=== PATIENT | male | born 1990 | race Caucasian/White ===

== ENCOUNTER 2017-01-07 08:33 | Observation (INO) | payer MEDICAID, SELFPAY ==
[2017-01-07] VITALS (18 sets, daily range): BP systolic 94–113; BP diastolic 50–68; PULSE 94–151; RESP 12–41; TEMP 37.1–38.7; O2SAT 93–100; BMI 24.2; BMI 23.8; BMI 23.9
--- NOTE | 2017-01-07 08:46 | EKG12_ITS ---
Test Reason : DYSRHYTHMIA Blood Pressure : / mmHG Vent. Rate : 144 BPM Atrial Rate : 144 BPM P-R Int : 124 ms QRS Dur : 082 ms QT Int : 280 ms P-R-T Axes : 062 084 065 degrees QTc Int : 433 ms Sinus tachycardia Otherwise normal ECG Confirmed by ALIREZA CORNELIUS, NORRIS ([id number]), editorial writer MU RINALDI ([id number]) on 01/13/2017 4:04:57 PM Referred By: FRENCH Confirmed By:NORRIS LAY MD
--- NOTE | 2017-01-07 08:46 | RAD_ITS ---
STUDY: X-RAY CHEST REASON FOR EXAM: Male, 26 years old. Dyspnea and shortness of breath. TECHNIQUE: Single AP portable view of the chest. COMPARISON: None. FINDINGS: EKG electrodes are seen. The lungs are clear and expanded. There is no demonstrated pleural abnormality. Normal size heart. Normal mediastinum and candy. Normal visualized pulmonary arteries. Normal visualized aortic arch and descending thoracic aorta. Normal visualized thoracic spine. Normal visualized ribs, clavicles, and shoulders. There is no demonstrated abnormality of the visualized soft tissue structures of the upper abdomen. RAD/Chest 1 View (Portable) IMPRESSION: Normal x-ray examination of the chest. Electronically Signed: Anibal Chandler MD at 9:29 EDT Tel [phone], Service support ,
--- NOTE | 2017-01-07 08:47 | ED.RN ---
NO OLD EKG
[2017-01-07] MEDS: 0.9% Normal Saline 1,000 ML IV.SOLN. 2500 ML IV (09:00)
[2017-01-07] MEDS: Acetaminophen 325 MG Tablet 650 MG PO (09:07)
[2017-01-07 09:16] LABS: Absolute Lymphocyte Count 0.98 X10^3/ul (0.83-4.51); Absolute Neutrophil Count 2.2 X10^3/uL (2.0-7.7); Basophil# 0.01 X10^3/uL; Basophil% 0.3 % (0-1); Eosinophil# 0.05 X10^3/uL; Eosinophils% 1.5 % (0-5); Hematocrit 42.1 % (40-54); Hemoglobin 14.1 g/dl (13.0-16.5); Lymphocyte # 0.98 X10^3/ul (4.0); Lymphocyte % 29.7 % (19-41); Mean Corp Hgb Conc 33.5 g/gl (32-36); Mean Corpuscular Hgb 29.3 pg (27.0-32.0); Mean Corpuscular Volume 87.5 fL (80-94); Mean Platelet Vol. 8.6 fl (6.2-12.0); Monocyte# 0.02 X10^3/uL; Monocyte% 0.6 % (0-10); Neutrophil # 2.24 X10^3/uL (2.7-7.7); Neutrophil % 67.9 % (47-70); Platelet Count 164 K/mm3 (150-450); RBC Distribution Width CV 15.2 % (11.6-14.6); RBC Distribution Width SD 49.2 fl (35.1-43.9); Red Blood Count 4.81 M/mm3 (4.6-6.2); White Blood Count 3.3 K/mm3 (4.4-11.0)
[2017-01-07 09:17] LABS: POSITIVE COUNT NO; POSITIVE DIFFERENTIAL NO; POSITIVE MORPHOLOGY NO
[2017-01-07 09:21] LABS: International Normalized Ratio 1.2; Prothrombin Time (Protime)PT. 14.4 SECONDS (11.7-14.9)
[2017-01-07 09:22] LABS: Partial Thromboplast Time 31.6 Seconds (24.1-36.2)
--- NOTE | 2017-01-07 09:25 | ED.DCSUM_ITS ---
- ER Visit Summary Date of Service: 01/07/17 Chief Complaint: Shortness of breath and palpitations History of Present Illness: The patient is a 26 M presenting for evaluation secondary to shortness of breath and palpitations. Patient states that today he went outside for a cigarette, and then had a sudden onset of intense Reiger's , palpitations, and shortness of breath. Patient states that he has a history of opiate abuse, his last injection use was 4 days ago and his last oral use was 2 days ago. Patient states that he is trying to get into a Suboxone clinic currently. He denies any cough, nausea vomiting diarrhea abdominal pain skin rashes or urinary symptoms. Review of systems otherwise negative Physical Examination: Vital signs are notable for a temperature of 101.2 and a heart rate of 151 and a respiratory rate of 41. Patient was 93% on room air. Well-nourished well-developed somewhat anxious male not in physiologic distress. Head normocephalic atraumatic. No conjunctival pallor no scleral icterus moist mucous membranes significantly poor dentition. Neck supple. Heart was tachycardic and regular without identifiable murmur. Lungs sounds showed evidence of wheezes in the upper and lower lung royal with tachypnea but no retractions. Abdomen was soft and nontender. Peripheral pulses were 2+ and symmetric. Skin exam shows no evidence of splinter hemorrhages, Janeway lesions, or Osler's nodes. Skin was normal color with no rash but was hot to the touch. Patient was alert and oriented without any lateralizing neurological deficits. Test Results: EKG shows sinus rate of [address] segments and normal T waves. Chest x-ray by my personal interpretation shows no acute pathology. CBC shows leukopenia with a white count of 3.3 without significant evidence of increased segs, chemistry panel unremarkable, urinalysis and urine tox screen unremarkable, elevated lactic acid at 3.5. Emergency Department Course and Treatment: Patient presented for evaluation secondary to shortness of breath palpitations fever and signs and symptoms of sepsis. He does have a history of IV drug use and as a significant risk for bacteremia. Sepsis protocol was initiated, patient was given a 30 cc prefer kilogram fluid bolus and was immediately started on vancomycin and aztreonam after blood cultures were obtained. He does not really have any stigmata at this point of endocarditis but I do still have some suspicion of this. His workup was negative for a source of infection, he remained tachycardic but otherwise hemodynamically stable. I believe the patient requires admission at this time I discussed with the hospitalist. Critical care time 35 minutes Disposition: Admission Impression: 1. Severe sepsis 2. Enteritis 3. Opiate dependence ED Disposition - Plan for ED Patient: Chief Complaint: Shortness of Breath Referrals: Care Physician,No Primary [Primary Care Provider] -
[2017-01-07 09:28] LABS: ALB/GLOB Ratio 0.9 RATIO (0.9-2.4); AST(SGOT) 56 U/L (15-37); Alanine Aminotransfer ALT/SGPT 67 U/L (12-78); Albumin, Serum 3.8 g/dL (3.4-5.0); Alkaline Phosphatase 79 U/L (45-117); Anion Gap 10 (5-15); BUN 11 mg/dL (7-18); BUN/Creat Ratio 12.4 RATIO (10-20); Chloride 107 mmol/L (98-107); Creatinine, Serum 0.89 mg/dL (0.70-1.30); EST Glomerular Filtration Rate 110 mL/min (>60); Est Glom Filt Rate - Afr Amer 133 mL/min (>60); Estimated Creatinine Clearance 129.87 ml/min; Globulin 4.1 g/dL (2.3-3.5); Glucose 100 mg/dL (70-110); Potassium 3.5 mmol/L (3.5-5.1); Protein, Total 7.9 g/dL (6.4-8.2); Sodium Level 138 mmol/L (136-145)
--- NOTE | 2017-01-07 09:40 | CT_ITS ---
STUDY: CT BRAIN WITHOUT CONTRAST REASON FOR EXAM: Male, 26 years old. Altered mental status. Tachycardia. Opiate addiction. RADIATION DOSAGE (If Supplied By Facility): CTDIvol = ( 44.99 ) mGy, DLP = ( 745.49 ) mGycm TECHNIQUE: Transaxial CT imaging of the brain was performed without administration of intravenous contrast material. Individualized dose optimization techniques were used for this CT. COMPARISON: None. FINDINGS: Normal soft tissue structures. Normal calvarium. Normal size ventricles and extra-axial spaces for the patient's age. Normal white matter tracts of the cerebral hemispheres. Normal basal ganglia and thalami. Normal brainstem. Normal cerebellum. There is no intracranial hemorrhage. There are no findings of an acute ischemic infarction. Normal visualized paranasal sinuses. CT/Brain/Head without Contrast IMPRESSION: Normal unenhanced CT scan of the brain. Electronically Signed: Anibal Chandler MD at 10:56 EDT Tel [phone], Service support ,
[2017-01-07 09:46] LABS: Lactic Acid 3.4 mmol/L (0.4-2.0)
--- NOTE | 2017-01-07 09:47 | ED.RN ---
LACTIC LEVEL 3.4, MD AND PRIMARY NURSE NOTIFIED.
[2017-01-07 10:09] LABS: Bacteria 0 SEEN /hpf (None Seen); Mucous, Urine 0 SEEN /hpf (<or=2+); Squamous Epithelial Cells - UA 0 SEEN /hpf (0-5)
[2017-01-07 10:23] LABS: Color, Urine Yellow (Yellow); Glucose, Dipstick Normal (Normal); Ketone-Dipstick Negative (Negative); Leukocyte Esterase-Dipstick 25 /ul (Negative); Nitrite-Dipstick Negative (Negative); Occult Blood-Urine 250 /ul (Negative); Protein-Dipstick 30 mg/dl (Negative); Specific Gravity, Urine 1.025 (1.002-1.030); Urine Clarity Clear (Clear); Urine Urobilinogen 1 mg/dl (Normal)
[2017-01-07 10:26] LABS: Urine Bilirubin Dipstick 1 mg/dL (Negative)
[2017-01-07 10:29] LABS: Amphetamine Urine VISTA NEGATIVE (<1000 ng/mL); Barbiturate Urine VISTA NEGATIVE (< 200 ng/mL); Benzodiazepine Urine VISTA NEGATIVE (< 200 ng/mL); Cocaine Urine VISTA NEGATIVE (< 300 ng/mL); Ecstacy Urine VISTA NEGATIVE (< 500 ng/mL); Methadone Urine VISTA NEGATIVE (< 300 ng/mL); PCP Urine VISTA NEGATIVE (< 25 ng/mL); THC Urine VISTA NEGATIVE (< 50 ng/mL); Vista UDS pH Range 5
[2017-01-07 10:34] LABS: Red Blood Cells-Urine 10-25 SEEN /hpf (0-5); White Blood Cells 0-5 SEEN /hpf (0-5)
--- NOTE | 2017-01-07 11:17 | ED.RN ---
REPORT SENT, CHARGE NURSE CALLED. CHARGE NURSE WILL CALL BACK SHE IS WITH AN ICU PT AT THE TIME.
--- NOTE | 2017-01-07 11:30 | ECHOD_ITS ---
Reason For Study: IV drug use, fever Procedure This was a 2D Doppler, Color Flow transthoracic echocardiogram. Exam performed portable in ICU/CCU. Left Ventricle Normal LV size. Left ventricular systolic function is normal. The estimated ejection fraction is 60 %. No regional wall motion abnormalities noted. Right Ventricle Normal RV size. Normal systolic function. Atria Normal left atrium. Normal right atrium. Mitral Valve Normal mitral valve. Tricuspid Valve Normal tricuspid valve. Aortic Valve Normal aortic valve. Trisinus/trileaflet aortic valve. Pulmonic Valve Normal pulmonic valve. Great Vessels Normal aortic root. The pulmonary artery is normal size. Normal inferior vena cava. Pericardium/Pleural No pericardial effusion. MMode/2D Measurements & Calculations LVIDd: 4.8 cm IVSd: 0.98 cm Ao root diam: 2.7 cm LVIDs: 3.0 cm LVPWd: 0.98 cm LA dimension: 3.6 cm RVDd: 3.8 cm FS: 37.7 % LAV(MOD-bp): 61.9 ml LA A4 area: 18.7 cm2 RA A4 area: 14.2 cm2 LAV(MOD-bp) Indexed: 31.9 ml/m2 LAV(MOD-sp2): 58.8 ml LAV(MOD-sp4): 54.4 ml Doppler Measurements & Calculations MV E max dwayne: 93.8 cm/sec Lat Peak E' Dwayne: 20.8 cm/sec Med Peak E' Dwayne: 16.1 cm/sec MV A max dwayne: 75.5 cm/sec E/E' lat: 4.5 E/E' med: 5.8 MV E/A: 1.2 Ao V2 max: 125.5 cm/sec LV V1 max: 116.3 cm/sec PA V2 max: 94.4 cm/sec Ao max P.3 mmHg LV V1 max P.4 mmHg Interpretation Summary Normal LV size. Left ventricular systolic function is normal. The estimated ejection fraction is 60 %. Trisinus/trileaflet aortic valve. Ordering Physician: Namrata Reese Referring Physician: GEORGE PCP Performed By: Alexus Gonzalez, RIGOBERTO, RVT
--- NOTE | 2017-01-07 11:55 | PCM.CON.CC ---
Reason for Consult Date of Consultation: 01/07/17 Reason for Consultation: Possible sepsis History of Present Illness: The patient is a 26-year-old male, with a history as outlined below, who presented to the emergency department on January 07 with complaints of chills, rigors and shortness of breath. The patient is currently residing at the [facility]. He reports that shortly after awakening this morning he went outside to smoke a cigarette, after which time he developed chills and significant rigors. The patient reports that he then went on to develop shortness of breath. The patient has a history of IV drug use. He reports that he last injected fentanyl 4 days ago. Prior to living at the [facility], [facility] where he states that he was routinely drinking [place] water and using stagnant water to inject his drugs. He also reports that several days ago he had a tooth abscess which prevented him from sleeping. Therefore, he pierced said abscess with some form of a needle to drain what he describes as purulent material. He reports that [facility] he has had a great deal of abdominal discomfort, bloating, flatulence and diarrhea. The patient is a current smoker of cigarettes of approximately 1 pack per day. On presentation to the emergency department, the patient was noted to be febrile, tachycardic but hemodynamically stable. He was initially maintaining appropriate oxygen saturations on room air. Initial laboratory evaluation revealed a decreased white blood cell count to 3000. Coagulation profile is within normal limits. Chemistry profile was largely unremarkable. Serum lactate was elevated to 3.4. AST was elevated to 56. Urinalysis was largely unremarkable. Toxicology screen was negative. Plain film chest x-ray revealed no acute cardiopulmonary process. CT head was negative. Given concern for underlying sepsis, the patient was given IV fluid hydration and started on antibiotics. He was subsequently transferred to the medical intensive care unit for ongoing management. Past Medical History Past Medical History (Chronic Problems): Chronic Problems Nicotine addiction (Chronic) Opiate addiction (Chronic) Poor dentition (Chronic) Allergies amoxicillin trihydrate [From Augmentin] Allergy (Verified 01/07/17 08:36) Swelling clindamycin Allergy (Verified 01/07/17 08:36) Swelling potassium clavulanate [From Augmentin] Allergy (Verified 01/07/17 08:36) Swelling ibuprofen [From Motrin] Adverse Reaction (Verified 01/07/17 08:36) Other Home Medications: Ambulatory Orders Medication Instructions Recorded Dicyclomine HCl [Bentyl] 20 mg PO ACHS #10 capsule 01/07/17 Smoking Status: Current every day smoker - *Family History Maternal History Items: No pertinent history Paternal History Items: No pertinent history Review of Systems Constitutional: Reports: Chills, Malaise. Denies: Fever Eyes: Denies: Blurred vision, Double vision HEENT: Denies: Head Aches, Sinus Congestion, Sinus Drainage Cardiovascular: Denies: Chest Pain, Palpitations Respiratory: Reports: Shortness of Breath Gastrointestinal: Reports: Abdominal Pain, Diarrhea Genitourinary: Denies: Dysuria Musculoskeletal: Reports: Leg Pain Skin: Denies: Rash, Wounds Neurological: Reports: Numbness Psychiatric: Denies: Anxiety, Depression, Homicidal Ideations, Suicidal Ideations Hematologic/ Lymphatic: Denies: Easy Bruising, Easy Bleeding Objective: The patient's most recent lab work, culture data and imaging studies have all been personally reviewed. Blood and urine cultures are currently pending. - Physical Exam General: Alert, Oriented x3, Cooperative, No apparent distress HEENT: Atraumatic, PERRLA, Normocephalic Oral: Moist Mucosa, - - Poor dentition Neck: Supple, No JVD, Trachea Midline Lungs: Normal air movement, No rhonchi, No wheeze, No rales Cardiovascular: Normal S1, Normal S2, No murmurs, Tachycardic Abdomen: Soft, Non Tender, Hyperactive Bowel Sounds Extremities: No clubbing, No cyanosis, No edema Skin: - - Multiple tattoos. Circumscribed induration in left antecubital fossa Musculoskeletal: No Tenderness to Palpation of Joints or Extremities Lymphatic: No Cervical, Supraclavicular, or Inguinal Adenopathy Neurological: Neuro grossly intact Psych/Mental Status: Normal Affect, Appropriate Vital Signs Temp Pulse Resp BP Pulse Ox 37.2 C 111 23 105/54 93 01/07/17 11:00 01/07/17 10:49 01/07/17 10:49 01/07/17 10:49 01/07/17 10:49 Laboratory Tests Past 24 Hrs 01/07/17 11:45 MRSA (PCR) Pending Labs (Last 48 Hours) 01/07/17 01/07/17 01/07/17 08:50 08:50 08:50 WBC 3.3 L RBC 4.81 Hgb 14.1 Hct 42.1 MCV 87.5 MCH 29.3 MCHC 33.5 RDW 15.2 H RDW Differential 49.2 H Plt Count 164 MPV 8.6 Immature Gran % (Auto) 0.000 Neut % (Auto) 67.9 Lymph % (Auto) 29.7 Drew % (Auto) 0.6 Eos % (Auto) 1.5 Baso % (Auto) 0.3 Absolute Neuts (auto) 2.2 Absolute Lymphs (auto) 0.98 Total Counted Not Reportable PT 14.4 INR 1.2 APTT 31.6 Sodium 138 Potassium 3.5 Chloride 107 Carbon Dioxide 21.0 Anion Gap 10 BUN 11 Creatinine 0.89 Estim Creat Clear Calc 129.87 Est GFR (MDRD) Af Amer 133 Est GFR (MDRD) Non-Af 110 BUN/Creatinine Ratio 12.4 Glucose 100 Lactic Acid Calcium 9.0 Total Bilirubin 1.00 AST 56 H ALT 67 Alkaline Phosphatase 79 Total Protein 7.9 Albumin 3.8 Globulin 4.1 H Albumin/Globulin Ratio 0.9 Urine Color Urine Clarity Urine pH Ur Specific Marshall Urine Protein Urine Glucose (UA) Urine Ketones Urine Occult Blood Urine Nitrite Urine Bilirubin Urine Urobilinogen Ur Leukocyte Esterase Urine RBC Urine WBC Ur Squamous Epith Cells Urine Bacteria Urine Mucus Urine Opiates Screen Urine Methadone Screen Ur Barbiturates Screen Ur Phencyclidine Scrn Ur Amphetamines Screen U Methamphetamin-MDMA U Benzodiazepines Scrn Urine Cocaine Screen U Cannabinoids Screen Ur Drug Screen Comment Ethyl Alcohol MRSA (PCR) 01/07/17 01/07/17 01/07/17 08:50 08:50 10:05 WBC RBC Hgb Hct MCV MCH MCHC RDW RDW Differential Plt Count MPV Immature Gran % (Auto) Neut % (Auto) Lymph % (Auto) Drew % (Auto) Eos % (Auto) Baso % (Auto) Absolute Neuts (auto) Absolute Lymphs (auto) Total Counted PT INR APTT Sodium Potassium Chloride Carbon Dioxide Anion Gap BUN Creatinine Estim Creat Clear Calc Est GFR (MDRD) Af Amer Est GFR (MDRD) Non-Af BUN/Creatinine Ratio Glucose Lactic Acid 3.4 H Calcium Total Bilirubin AST ALT Alkaline Phosphatase Total Protein Albumin Globulin Albumin/Globulin Ratio Urine Color Urine Clarity Urine pH Ur Specific Marshall Urine Protein Urine Glucose (UA) Urine Ketones Urine Occult Blood Urine Nitrite Urine Bilirubin Urine Urobilinogen Ur Leukocyte Esterase Urine RBC Urine WBC Ur Squamous Epith Cells Urine Bacteria Urine Mucus Urine Opiates Screen NEGATIVE Urine Methadone Screen NEGATIVE Ur Barbiturates Screen NEGATIVE Ur Phencyclidine Scrn NEGATIVE Ur Amphetamines Screen NEGATIVE U Methamphetamin-MDMA NEGATIVE U Benzodiazepines Scrn NEGATIVE Urine Cocaine Screen NEGATIVE U Cannabinoids Screen NEGATIVE Ur Drug Screen Comment Ethyl Alcohol 8.0 MRSA (PCR) 01/07/17 01/07/17 10:05 11:45 WBC RBC Hgb Hct MCV MCH MCHC RDW RDW Differential Plt Count MPV Immature Gran % (Auto) Neut % (Auto) Lymph % (Auto) Drew % (Auto) Eos % (Auto) Baso % (Auto) Absolute Neuts (auto) Absolute Lymphs (auto) Total Counted PT INR APTT Sodium Potassium Chloride Carbon Dioxide Anion Gap BUN Creatinine Estim Creat Clear Calc Est GFR (MDRD) Af Amer Est GFR (MDRD) Non-Af BUN/Creatinine Ratio Glucose Lactic Acid Calcium Total Bilirubin AST ALT Alkaline Phosphatase Total Protein Albumin Globulin Albumin/Globulin Ratio Urine Color Yellow Urine Clarity Clear Urine pH 5.0 Ur Specific Marshall 1.025 Urine Protein 30 H Urine Glucose (UA) Normal Urine Ketones Negative Urine Occult Blood 250 H Urine Nitrite Negative Urine Bilirubin 1 H Urine Urobilinogen 1 H Ur Leukocyte Esterase 25 H Urine RBC 10-25 SEEN Urine WBC 0-5 SEEN Ur Squamous Epith Cells 0 SEEN Urine Bacteria 0 SEEN Urine Mucus 0 SEEN Urine Opiates Screen Urine Methadone Screen Ur Barbiturates Screen Ur Phencyclidine Scrn Ur Amphetamines Screen U Methamphetamin-MDMA U Benzodiazepines Scrn Urine Cocaine Screen U Cannabinoids Screen Ur Drug Screen Comment Ethyl Alcohol MRSA (PCR) Pending Microbiology 01/07/17 10:05 Stool C. difficile DNA Amplification - Final Clinical Impression(s) from Imaging Studies Chest X-Ray 01/07/17 08:46 IMPRESSION: Normal x-ray examination of the chest. Electronically Signed: Anibal Chandler MD at 9:29 EDT Tel [phone], Service support , Brain CT 01/07/17 09:40 IMPRESSION: Normal unenhanced CT scan of the brain. Electronically Signed: Anibal Chandler MD at 10:56 EDT Tel [phone], Service support , Assessment/Plan RECOMMENDATIONS: 1. Continue broad antimicrobial coverage for now. The patient reports multiple drug allergies and was therefore changed to cefepime. Continue vancomycin with consideration for addition of Flagyl, if clinically indicated. 2. Okay to advance diet from my perspective. 3. Discontinue supplemental IV fluids. 4. Opiate withdrawal protocol initiated. 5. Echocardiogram is pending. 6. Recheck serum lactate level. 7. Check stool Giardia EIA IMPRESSIONS: 1. Sepsis Sources could include possible dental abscess, bacteremia from IV drug injection and/or parasitic infection from recent teller water ingestion. The patient has been adequately volume resuscitated at this time. He is currently hemodynamically stable. Continue antibiotics as noted above, pending culture results. Stool for Giardia EIA along with O&P has been ordered. Blood and urine cultures are pending. Echocardiogram to be completed. Repeat serum lactic acid level. Consider checking HIV status. 2. Personal history of IV drug abuse The patient reports that he last utilized IV fentanyl approximately 4 days ago. He will be maintained on an opiate withdrawal protocol. 3. Continuous tobacco dependence Tobacco cessation strongly advised. Nicotine replacement therapy can be offered to the patient while admitted to the hospital. This note was generated with [employer] software. It may contain incorrect words, spelling, and punctuation that were not noted in checking the note before signing.
--- NOTE | 2017-01-07 12:00 | CON.PCM_ITS ---
Reason for Consult Date of Consultation: 01/07/17 Reason for Consultation: Possible sepsis History of Present Illness: The patient is a 26-year-old male, with a history as outlined below, who presented to the emergency department on January 07 with complaints of chills , rigors and shortness of breath. The patient is currently residing at the [facility]. He reports that shortly after awakening this morning he went outside to smoke a cigarette, after which time he developed chills and significant rigors. The patient reports that he then went on to develop shortness of breath. The patient has a history of IV drug use. He reports that he last injected fentanyl 4 days ago. Prior to living at the [facility], the patient was residing in the [facility], where he states that he was routinely drinking [place] water and using stagnant water to inject his drugs. He also reports that several days ago he had a tooth abscess which prevented him from sleeping. Therefore, he pierced said abscess with some form of a needle to drain what he describes as purulent material. He reports that since living in the [facility] he has had a great deal of abdominal discomfort, bloating, flatulence and diarrhea. The patient is a current smoker of cigarettes of approximately 1 pack per day. On presentation to the emergency department, the patient was noted to be febrile , tachycardic but hemodynamically stable. He was initially maintaining appropriate oxygen saturations on room air. Initial laboratory evaluation revealed a decreased white blood cell count to 3000. Coagulation profile is within normal limits. Chemistry profile was largely unremarkable. Serum lactate was elevated to 3.4. AST was elevated to 56. Urinalysis was largely unremarkable. Toxicology screen was negative. Plain film chest x-ray revealed no acute cardiopulmonary process. CT head was negative. Given concern for underlying sepsis, the patient was given IV fluid hydration and started on antibiotics. He was subsequently transferred to the medical intensive care unit for ongoing management. Past Medical History Past Medical History (Chronic Problems): Chronic Problems Nicotine addiction (Chronic) Opiate addiction (Chronic) Poor dentition (Chronic) Allergies amoxicillin trihydrate [From Augmentin] Allergy (Verified 01/07/17 08:36) Swelling clindamycin Allergy (Verified 01/07/17 08:36) Swelling potassium clavulanate [From Augmentin] Allergy (Verified 01/07/17 08:36) Swelling ibuprofen [From Motrin] Adverse Reaction (Verified 01/07/17 08:36) Other Home Medications: Ambulatory Orders Medication Instructions Recorded Dicyclomine HCl [Bentyl] 20 mg PO ACHS #10 capsule 01/07/17 Smoking Status: Current every day smoker - *Family History Maternal History Items: No pertinent history Paternal History Items: No pertinent history Review of Systems Constitutional: Reports: Chills, Malaise. Denies: Fever Eyes: Denies: Blurred vision, Double vision HEENT: Denies: Head Aches, Sinus Congestion, Sinus Drainage Cardiovascular: Denies: Chest Pain, Palpitations Respiratory: Reports: Shortness of Breath Gastrointestinal: Reports: Abdominal Pain, Diarrhea Genitourinary: Denies: Dysuria Musculoskeletal: Reports: Leg Pain Skin: Denies: Rash, Wounds Neurological: Reports: Numbness Psychiatric: Denies: Anxiety, Depression, Homicidal Ideations, Suicidal Ideations Hematologic/ Lymphatic: Denies: Easy Bruising, Easy Bleeding Objective: The patient's most recent lab work, culture data and imaging studies have all been personally reviewed. Blood and urine cultures are currently pending. - Physical Exam General: Alert, Oriented x3, Cooperative, No apparent distress HEENT: Atraumatic, PERRLA, Normocephalic Oral: Moist Mucosa, - - Poor dentition Neck: Supple, No JVD, Trachea Midline Lungs: Normal air movement, No rhonchi, No wheeze, No rales Cardiovascular: Normal S1, Normal S2, No murmurs, Tachycardic Abdomen: Soft, Non Tender, Hyperactive Bowel Sounds Extremities: No clubbing, No cyanosis, No edema Skin: - - Multiple tattoos. Circumscribed induration in left antecubital fossa Musculoskeletal: No Tenderness to Palpation of Joints or Extremities Lymphatic: No Cervical, Supraclavicular, or Inguinal Adenopathy Neurological: Neuro grossly intact Psych/Mental Status: Normal Affect, Appropriate Vital Signs Temp Pulse Resp BP Pulse Ox 37.2 C 111 23 105/54 93 01/07/17 11:00 01/07/17 10:49 01/07/17 10:49 01/07/17 10:49 01/07/17 10:49 Laboratory Tests Past 24 Hrs 01/07/17 11:45 MRSA (PCR) Pending Labs (Last 48 Hours) 01/07/17 01/07/17 01/07/17 08:50 08:50 08:50 WBC 3.3 L RBC 4.81 Hgb 14.1 Hct 42.1 MCV 87.5 MCH 29.3 MCHC 33.5 RDW 15.2 H RDW Differential 49.2 H Plt Count 164 MPV 8.6 Immature Gran % (Auto) 0.000 Neut % (Auto) 67.9 Lymph % (Auto) 29.7 Waldo % (Auto) 0.6 Eos % (Auto) 1.5 Baso % (Auto) 0.3 Absolute Neuts (auto) 2.2 Absolute Lymphs (auto) 0.98 Total Counted Not Reportable PT 14.4 INR 1.2 APTT 31.6 Sodium 138 Potassium 3.5 Chloride 107 Carbon Dioxide 21.0 Anion Gap 10 BUN 11 Creatinine 0.89 Estim Creat Clear Calc 129.87 Est GFR (MDRD) Af Amer 133 Est GFR (MDRD) Non-Af 110 BUN/Creatinine Ratio 12.4 Glucose 100 Lactic Acid Calcium 9.0 Total Bilirubin 1.00 AST 56 H ALT 67 Alkaline Phosphatase 79 Total Protein 7.9 Albumin 3.8 Globulin 4.1 H Albumin/Globulin Ratio 0.9 Urine Color Urine Clarity Urine pH Ur Specific [place] Urine Protein Urine Glucose (UA) Urine Ketones Urine Occult Blood Urine Nitrite Urine Bilirubin Urine Urobilinogen Ur Leukocyte Esterase Urine RBC Urine WBC Ur Squamous Epith Cells Urine Bacteria Urine Mucus Urine Opiates Screen Urine Methadone Screen Ur Barbiturates Screen Ur Phencyclidine Scrn Ur Amphetamines Screen U Methamphetamin-MDMA U Benzodiazepines Scrn Urine Cocaine Screen U Cannabinoids Screen Ur Drug Screen Comment Ethyl Alcohol MRSA (PCR) 01/07/17 01/07/17 01/07/17 08:50 08:50 10:05 WBC RBC Hgb Hct MCV MCH MCHC RDW RDW Differential Plt Count MPV Immature Gran % (Auto) Neut % (Auto) Lymph % (Auto) Waldo % (Auto) Eos % (Auto) Baso % (Auto) Absolute Neuts (auto) Absolute Lymphs (auto) Total Counted PT INR APTT Sodium Potassium Chloride Carbon Dioxide Anion Gap BUN Creatinine Estim Creat Clear Calc Est GFR (MDRD) Af Amer Est GFR (MDRD) Non-Af BUN/Creatinine Ratio Glucose Lactic Acid 3.4 H Calcium Total Bilirubin AST ALT Alkaline Phosphatase Total Protein Albumin Globulin Albumin/Globulin Ratio Urine Color Urine Clarity Urine pH Ur Specific Shoup Urine Protein Urine Glucose (UA) Urine Ketones Urine Occult Blood Urine Nitrite Urine Bilirubin Urine Urobilinogen Ur Leukocyte Esterase Urine RBC Urine WBC Ur Squamous Epith Cells Urine Bacteria Urine Mucus Urine Opiates Screen NEGATIVE Urine Methadone Screen NEGATIVE Ur Barbiturates Screen NEGATIVE Ur Phencyclidine Scrn NEGATIVE Ur Amphetamines Screen NEGATIVE U Methamphetamin-MDMA NEGATIVE U Benzodiazepines Scrn NEGATIVE Urine Cocaine Screen NEGATIVE U Cannabinoids Screen NEGATIVE Ur Drug Screen Comment Ethyl Alcohol 8.0 MRSA (PCR) 01/07/17 01/07/17 10:05 11:45 WBC RBC Hgb Hct MCV MCH MCHC RDW RDW Differential Plt Count MPV Immature Gran % (Auto) Neut % (Auto) Lymph % (Auto) Waldo % (Auto) Eos % (Auto) Baso % (Auto) Absolute Neuts (auto) Absolute Lymphs (auto) Total Counted PT INR APTT Sodium Potassium Chloride Carbon Dioxide Anion Gap BUN Creatinine Estim Creat Clear Calc Est GFR (MDRD) Af Amer Est GFR (MDRD) Non-Af BUN/Creatinine Ratio Glucose Lactic Acid Calcium Total Bilirubin AST ALT Alkaline Phosphatase Total Protein Albumin Globulin Albumin/Globulin Ratio Urine Color Yellow Urine Clarity Clear Urine pH 5.0 Ur Specific [place]oup 1.025 Urine Protein 30 H Urine Glucose (UA) Normal Urine Ketones Negative Urine Occult Blood 250 H Urine Nitrite Negative Urine Bilirubin 1 H Urine Urobilinogen 1 H Ur Leukocyte Esterase 25 H Urine RBC 10-25 SEEN Urine WBC 0-5 SEEN Ur Squamous Epith Cells 0 SEEN Urine Bacteria 0 SEEN Urine Mucus 0 SEEN Urine Opiates Screen Urine Methadone Screen Ur Barbiturates Screen Ur Phencyclidine Scrn Ur Amphetamines Screen U Methamphetamin-MDMA U Benzodiazepines Scrn Urine Cocaine Screen U Cannabinoids Screen Ur Drug Screen Comment Ethyl Alcohol MRSA (PCR) Pending Microbiology 01/07/17 10:05 Stool C. difficile DNA Amplification - Final Clinical Impression(s) from Imaging Studies Chest X-Ray 01/07/17 08:46 IMPRESSION: Normal x-ray examination of the chest. Electronically Signed: Anibal Chandler MD at 9:29 EDT Tel [phone], Service support , Brain CT 01/07/17 09:40 IMPRESSION: Normal unenhanced CT scan of the brain. Electronically Signed: Anibal Chandler MD at 10:56 EDT Tel [phone], Service support , Assessment/Plan RECOMMENDATIONS: 1. Continue broad antimicrobial coverage for now. The patient reports multiple drug allergies and was therefore changed to cefepime. Continue vancomycin with consideration for addition of Flagyl, if clinically indicated. 2. Okay to advance diet from my perspective. 3. Discontinue supplemental IV fluids. 4. Opiate withdrawal protocol initiated. 5. Echocardiogram is pending. 6. Recheck serum lactate level. 7. Check stool Giardia EIA IMPRESSIONS: 1. Sepsis Sources could include possible dental abscess, bacteremia from IV drug injection and/or parasitic infection from recent [place] water ingestion. The patient has been adequately volume resuscitated at this time. He is currently hemodynamically stable. Continue antibiotics as noted above, pending culture results. Stool for Giardia EIA along with O&P has been ordered. Blood and urine cultures are pending. Echocardiogram to be completed. Repeat serum lactic acid level. Consider checking HIV status. 2. Personal history of IV drug abuse The patient reports that he last utilized IV fentanyl approximately 4 days ago. He will be maintained on an opiate withdrawal protocol. 3. Continuous tobacco dependence Tobacco cessation strongly advised. Nicotine replacement therapy can be offered to the patient while admitted to the hospital. This note was generated with [employer] software. It may contain incorrect words, spelling, and punctuation that were not noted in checking the note before signing.
[2017-01-07 12:07] LABS: Reflex Lactate? Y
[2017-01-07] MEDS: 0.9% Normal Saline 1,000 ML 100 ML IV (12:20)
[2017-01-07 12:36] LABS: Lactic Acid 1.3 mmol/L (0.4-2.0)
--- NOTE | 2017-01-07 13:15 | PCM.HP.STD ---
Problem List (1) Opiate addiction Status: Chronic (2) Nicotine addiction Status: Chronic (3) Poor dentition Status: Chronic (4) Sepsis Status: Acute (5) Enteritis Status: Suspected History of Present Illness Date of Admission: 01/07/17 Chief Complaint: Fevers and shaking chills, severe diarrhea The patient is a 26 year old M with a history of opiate addiction and cannabis use who presented to the emergency room complaining of fever/chills, severe diarrhea. He has had diarrhea since Tuesday 01/02. Fever and chills started 24 hours ago. He denies cough and also denies dysuria. He has mild lower abdominal pain. He does complain of some nausea but has not had emesis. Denies headache or neck stiffness. He also tells me that he has an abscessed tooth in the left jaw which he drained himself. Hayley not seen a dentist in several years and has very poor dentition. He is currently living at the [facility] but up until recently he was living in the [facility] and drinking [place] water and also using the [place] water to shoot up with. He tells me he last injected heroin on 01/03. He has been in opiate withdrawal in the past and states that the symptoms are different. He went to inpatient rehab in 2011 and moved out of the town he was living in. He stayed clean for 3 years but recently lost his housing and had to move back to the town he came from. He started using Fentanyl IV again. He tells me he uses $40 a day. Denies any hx of HIV or Hepatitis C. No RLS. Vital signs at presentation to the ER are temperature 99.6, pulse rate 148, blood pressure 103/56, respiratory rate 38 and he was 96% saturated on room air. His temperature did increase while in the emergency room to 101.6. White blood cell count is low at 3.3. Lactic acid was 3.4 initially but the second lactic acid is 1.3. Urine specific gravity was 1.025 secondary to intravascular volume depletion/dehydration. Urine drug screen was negative and alcohol level was 8.0. Chest x-ray shows no infiltrates. Urine had 0-5 WBCs. Blood cultures were drawn in the emergency room. C. difficile was negative. Enteric pathogen panel, Giardia and ova and parasites have been ordered. Past Medical History Past Medical History (Chronic Problems): Chronic Problems Nicotine addiction (Chronic) Opiate addiction (Chronic) Poor dentition (Chronic) Allergies amoxicillin trihydrate [From Augmentin] Allergy (Verified 01/07/17 08:36) Swelling clindamycin Allergy (Verified 01/07/17 08:36) Swelling potassium clavulanate [From Augmentin] Allergy (Verified 01/07/17 08:36) Swelling ibuprofen [From Motrin] Adverse Reaction (Verified 01/07/17 08:36) Other Surgical History: no surgical history Psychiatric History: No pertinent psych hx Lives: - - at the [facility] Smoking Status: Heavy Smoker (>10/day) Tobacco Use: Cigarettes Alcohol: Occasional Drugs: - - IV Fentanyl - *Family History Maternal History Items: No pertinent history Paternal History Items: No pertinent history Review of Systems Constitutional: Reports: Chills, Fever. Denies: Anorexia, Weakness Eyes: Denies: Blurred vision, Redness HEENT: Reports: - - he had a dental abscess of the left mandible recently and he lanced it with some type of dirty needle. Denies: Difficulty Hearing, Head Aches, Nasal Congestion, Sore Throat Cardiovascular: Denies: Chest Pain, Light Headedness, Palpitations Respiratory: Denies: Cough, Pleuritic Pain, Shortness of Breath Gastrointestinal: Reports: Abdominal Pain - lower abdomen crampy pain, Diarrhea - 15-20 times a day for 1 week Genitourinary: Denies: Dysuria, Frequency Musculoskeletal: Denies: Joint Pain, Joint swelling, Joint Tenderness, Neck Pain Skin: Reports: - - he has an area of superficial thrombophlebitis in the left axilla and fresh tract murray. Denies: Jaundice Neurological: Denies: Numbness, Tingling, Focal weakness Psychiatric: Denies: Anxiety, Depression, Homicidal Ideations, Suicidal Ideations Endocrine: Denies: Hx of Thyroiditis Hematologic/ Lymphatic: Denies: Hx of blood clot VTE Information - Inpt Only VTE Present on Admission: No VTE Mechan Device Prophylaxis: None VTE Pharm Prophylaxis ordered?: Yes Patient Problems: Active and Suspected Problems Sepsis (Acute) Enteritis (Suspected) - Physical Exam General: Alert, Oriented x3, Cooperative, No apparent distress, Well developed, Well nourished, - - states he is very hungry. HEENT: Atraumatic, PERRLA, EOMI, Normocephalic Oral: Dry Mucosa, - - very poor dentition Neck: Supple, No JVD, Negative Carotid Bruits, No Nodes, No Nuchal Rigidity, Trachea Midline Lungs: Clear to auscultation, No rhonchi, No wheeze, No rales Cardiovascular: Regular Rhythm, Normal S1, Normal S2, No murmurs, No rub noted, No Gallop, Tachycardic Abdomen: Bowel Sounds Present - not hyeractive, Soft, Non-Distended, Tender - in the lower abdomen but no guarding with palpation Extremities: No clubbing, No cyanosis, No edema, - Skin: No rashes, - - multiple tattos.....no evidence cellulitis, no abscesses. The superficial thrombophlebitis in the left antecubital is not warm, tender or red and there are fresh track murray Musculoskeletal: No Tenderness to Palpation of Joints or Extremities, No Muscle Wasting Lymphatic: No Cervical, Supraclavicular, or Inguinal Adenopathy Neurological: Cranial nerves II-XII grossly intact, Neuro grossly intact Psych/Mental Status: Agitated - when I told him he would be on a full liquid diet Vital Signs Temp Pulse Resp BP Pulse Ox 98.9 F 111 23 105/54 93 01/07/17 11:00 01/07/17 10:49 01/07/17 10:49 01/07/17 10:49 01/07/17 10:49 Laboratory Tests Past 24 Hrs 01/07/17 01/07/17 01/07/17 11:45 11:55 11:55 Lactic Acid 1.3 Troponin I < 0.02 MRSA (PCR) Pending Assessment/Plan Active and Suspected Problems Sepsis (Acute) Enteritis (Suspected) Impressions 1. sepsis - likely due to enteritis but need to consider endocarditis in an IV drug abuser who also has very poor dentition and recently drained a dental abscess with a dirty needle 2. Opiate addiction 3. Nicotine addiction 4. Poor dentition 5. Enteritis - possibly due to Giardia since he has been drinking [place] VAnco and Cefipime Full liquid diet enteric pathogen panel blood cultures ECHO Nicotine patch O&P C. Diff is negative Start him on Subotex taper Have [facility] talk to him about drug rehab Encouraged him to follow up with a dentist SHAR
--- NOTE | 2017-01-07 13:29 | HP.PCM_ITS ---
Problem List (1) Opiate addiction Status: Chronic (2) Nicotine addiction Status: Chronic (3) Poor dentition Status: Chronic (4) Sepsis Status: Acute (5) Enteritis Status: Suspected History of Present Illness Date of Admission: 01/07/17 Chief Complaint: Fevers and shaking chills, severe diarrhea The patient is a 26 year old M with a history of opiate addiction and cannabis use who presented to the emergency room complaining of fever/chills, severe diarrhea. He has had diarrhea since Tuesday 01/02. Fever and chills started 24 hours ago. He denies cough and also denies dysuria. He has mild lower abdominal pain. He does complain of some nausea but has not had emesis. Denies headache or neck stiffness. He also tells me that he has an abscessed tooth in the left jaw which he drained himself. Hayley not seen a dentist in several years and has very poor dentition. He is currently living at the [facility] but up until recently he was living in the [facility] and drinking [place] water and also using the [place] water to shoot up with. He tells me he last injected heroin on 01/03. He has been in opiate withdrawal in the past and states that the symptoms are different. He went to inpatient rehab in 2011 and moved out of the town he was living in. He stayed clean for 3 years but recently lost his housing and had to move back to the town he came from. He started using Fentanyl IV again. He tells me he uses $40 a day. Denies any hx of HIV or Hepatitis C. No RLS. Vital signs at presentation to the ER are temperature 99.6, pulse rate 148, blood pressure 103/56, respiratory rate 38 and he was 96% saturated on room air. His temperature did increase while in the emergency room to 101.6. White blood cell count is low at 3.3. Lactic acid was 3.4 initially but the second lactic acid is 1.3. Urine specific gravity was 1.025 secondary to intravascular volume depletion/dehydration. Urine drug screen was negative and alcohol level was 8.0. Chest x-ray shows no infiltrates. Urine had 0-5 WBCs. Blood cultures were drawn in the emergency room. C. difficile was negative. Enteric pathogen panel, Giardia and ova and parasites have been ordered. Past Medical History Past Medical History (Chronic Problems): Chronic Problems Nicotine addiction (Chronic) Opiate addiction (Chronic) Poor dentition (Chronic) Allergies amoxicillin trihydrate [From Augmentin] Allergy (Verified 01/07/17 08:36) Swelling clindamycin Allergy (Verified 01/07/17 08:36) Swelling potassium clavulanate [From Augmentin] Allergy (Verified 01/07/17 08:36) Swelling ibuprofen [From Motrin] Adverse Reaction (Verified 01/07/17 08:36) Other Surgical History: no surgical history Psychiatric History: No pertinent psych hx Lives: - - at the [facility] Smoking Status: Heavy Smoker (>10/day) Tobacco Use: Cigarettes Alcohol: Occasional Drugs: - - IV Fentanyl - *Family History Maternal History Items: No pertinent history Paternal History Items: No pertinent history Review of Systems Constitutional: Reports: Chills, Fever. Denies: Anorexia, Weakness Eyes: Denies: Blurred vision, Redness HEENT: Reports: - - he had a dental abscess of the left mandible recently and he lanced it with some type of dirty needle. Denies: Difficulty Hearing, Head Aches, Nasal Congestion, Sore Throat Cardiovascular: Denies: Chest Pain, Light Headedness, Palpitations Respiratory: Denies: Cough, Pleuritic Pain, Shortness of Breath Gastrointestinal: Reports: Abdominal Pain - lower abdomen crampy pain, Diarrhea - 15-20 times a day for 1 week Genitourinary: Denies: Dysuria, Frequency Musculoskeletal: Denies: Joint Pain, Joint swelling, Joint Tenderness, Neck Pain Skin: Reports: - - he has an area of superficial thrombophlebitis in the left axilla and fresh tract murray. Denies: Jaundice Neurological: Denies: Numbness, Tingling, Focal weakness Psychiatric: Denies: Anxiety, Depression, Homicidal Ideations, Suicidal Ideations Endocrine: Denies: Hx of Thyroiditis Hematologic/ Lymphatic: Denies: Hx of blood clot VTE Information - Inpt Only VTE Present on Admission: No VTE Mechan Device Prophylaxis: None VTE Pharm Prophylaxis ordered?: Yes Patient Problems: Active and Suspected Problems Sepsis (Acute) Enteritis (Suspected) - Physical Exam General: Alert, Oriented x3, Cooperative, No apparent distress, Well developed, Well nourished, - - states he is very hungry. HEENT: Atraumatic, PERRLA, EOMI, Normocephalic Oral: Dry Mucosa, - - very poor dentition Neck: Supple, No JVD, Negative Carotid Bruits, No Nodes, No Nuchal Rigidity, Trachea Midline Lungs: Clear to auscultation, No rhonchi, No wheeze, No rales Cardiovascular: Regular Rhythm, Normal S1, Normal S2, No murmurs, No rub noted, No Gallop, Tachycardic Abdomen: Bowel Sounds Present - not hyeractive, Soft, Non-Distended, Tender - in the lower abdomen but no guarding with palpation Extremities: No clubbing, No cyanosis, No edema, - Skin: No rashes, - - multiple tattos.....no evidence cellulitis, no abscesses. The superficial thrombophlebitis in the left antecubital is not warm, tender or red and there are fresh track murray Musculoskeletal: No Tenderness to Palpation of Joints or Extremities, No Muscle Wasting Lymphatic: No Cervical, Supraclavicular, or Inguinal Adenopathy Neurological: Cranial nerves II-XII grossly intact, Neuro grossly intact Psych/Mental Status: Agitated - when I told him he would be on a full liquid diet Vital Signs Temp Pulse Resp BP Pulse Ox 98.9 F 111 23 105/54 93 01/07/17 11:00 01/07/17 10:49 01/07/17 10:49 01/07/17 10:49 01/07/17 10:49 Laboratory Tests Past 24 Hrs 01/07/17 01/07/17 01/07/17 11:45 11:55 11:55 Lactic Acid 1.3 Troponin I < 0.02 MRSA (PCR) Pending Assessment/Plan Active and Suspected Problems Sepsis (Acute) Enteritis (Suspected) Impressions 1. sepsis - likely due to enteritis but need to consider endocarditis in an IV drug abuser who also has very poor dentition and recently drained a dental abscess with a dirty needle 2. Opiate addiction 3. Nicotine addiction 4. Poor dentition 5. Enteritis - possibly due to Giardia since he has been drinking [place] VAnco and Cefipime Full liquid diet enteric pathogen panel blood cultures ECHO Nicotine patch O&P C. Diff is negative Start him on Subotex taper Have [facility] talk to him about drug rehab Encouraged him to follow up with a dentist SHAR
--- NOTE | 2017-01-07 14:00 | NURSING ---
This nurse explained to the patient his order was changed from regular diet to full liquid. This nurse explained the reason why, however the physician will also come in to explain. The patient became upset, angry and refused to look at any menu items for full liquid items. Dr. Reese then entered the room and further explained why full liquid diet, The patient requested to leave AMA. The physician explained to the patient the risks for leaving medical care against a doctors advice, patient continued to refuse treatment and requested to leave AMA. Papers printed and sign, IVs removed and patient dressed himself. patient left at 1415.
[2017-01-07 14:14] LABS: Magnesium 1.5 mg/dL (1.8-2.4); Phosphorus 2.5 mg/dL (2.5-4.9)
[2017-01-07 15:15] LABS: M R Staph aureus DNA By PCR Negative (Negative); Probe Check PASS; Specimen Processing Control PASS
--- NOTE | 2017-01-07 15:46 | PCM.DC.SUM ---
Discharge Date and Diagnosis Date of Admission: 01/07/17 Date of Discharge: 01/07/17 - Primary Discharge Diagnosis Sepsis Leukopenia - Secondary Discharge Diagnosis Chronic Problems Nicotine addiction (Chronic) Opiate addiction (Chronic) Poor dentition (Chronic) Hospital Course and Treatment Imaging Results: 01/07/17 11:30 Echo Complete [ECHO] Urgent Clinical Impression(s) from Imaging Studies Chest X-Ray 01/07/17 08:46 IMPRESSION: Normal x-ray examination of the chest. Electronically Signed: Anibal Chandler MD at 9:29 EDT Tel [phone], Service support , Brain CT 01/07/17 09:40 IMPRESSION: Normal unenhanced CT scan of the brain. 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 Fever and chills started 24 hours prior to presentation to the ER. He denied cough and also denied dysuria. He had mild lower abdominal pain. He complained of some nausea but had not had emesis. Denied headache or neck stiffness. He stated he had an abscessed tooth in the left jaw which he drained himself with a dirty needle. He had not seen a dentist in several years and has very poor dentition. He is currently living at the [email or web address] but up until recently he was living in the [place] and drinking [place] water and also using the stagnant mentasta water to shoot up with. He told me he last injected Fentanyl on 01/03 but he had fresh track murray in the left axilla. He has been in opiate withdrawal in the past and stated that the symptoms were different. Vital signs at presentation to the ER were temperature 99.6, pulse rate 148, blood pressure 103/56, respiratory rate 38 and he was 96% saturated on room air. His temperature did increase while in the emergency room to 101.6. White blood cell count was low at 3.3. Lactic acid was 3.4 initially but the second lactic acid was 1.3 following hydration. Urine specific gravity was 1.025 secondary to intravascular volume depletion/dehydration. Urine drug screen was negative and alcohol level was 8.0. Chest x-ray showed no infiltrates. Urine had 0-5 WBCs. Blood cultures were drawn in the emergency room. C. difficile was negative. A enteric pathogen panel was negative. Giardia and ova and parasites are pending. He was admitted to the ICU and started on Cefepime and Vanco. He was seen in consultation by Dr. Tovar. He was started on a full liquid diet with low gastric residue and was very unhappy with this. Demanded a regular diet because he stated he was hungry. When we would not comply with this due to the severe diarrhea he left AMA. Prior to leaving he was told that his diagnosis was sepsis which carries a significant risk of mortality. We assured him that he would be getting something to eat but would not be a regular diet until the enteritis improved. He was also told that we would be unable to give him prescriptions at discharge if he left AMA. He signed the AMA form and left. He was advised to return to the ER if he changed his mind or if his sx got worse. He was advised to follow up with a dentist. After he left the hospital the ECHO report came back and there were no vegetations. This note was generated with [employer] dictation software. It may contain incorrect words, spelling, and punctuation that were not noted in checking the note before signing. Home Medications: Medications to take at Discharge Dicyclomine HCl [Bentyl] 20 mg PO ACHS #10 capsule 01/07/17 Primary Care Physician: Care Physician,No Primary [Primary Care Provider] - Disposition: Against Medical Advice Minutes spent on discharge:: 40 Patient Condition:: Guarded Meaningful Use Info Meaningful Use Diagnoses (Choose all that apply): None applicable
[2017-01-13 10:55] LABS: Giardia Lamblia, Stool EIA NEGATIVE
== END 2017-01-07 14:30 | disposition left against medical advice (07) | DRG 720 ==
LOC: ED 10-07 12:09 → ICU 10-07 12:10
PROVIDERS: Internal Medicine Critical Care Medicine; Admitting Provider Internal Medicine; Emergency Provider Emergency Medicine; Visit Provider Internal Medicine
DX: A41.9 Sepsis, unspecified organism (principal); F17.210 Nicotine dependence, cigarettes, uncomplicated; D72.819 Decreased white blood cell count, unspecified; K08.9 Disorder of teeth and supporting structures, unspecified; F12.90 Cannabis use, unspecified, uncomplicated; R19.7 Diarrhea, unspecified; R53.83 Other fatigue; R53.1 Weakness; F11.23 Opioid dependence with withdrawal
CPT/HCPCS: 70450; 71010; 80048; 80053; 80307; 80320; 81001; 83605; 83735; 84100; 84484; 85025; 85610; 85730; 87040; 87086; 87177; 87209; 87329; 87493; 87506; 87641; 93005; 93306; 96360; 99218; 99285; J7030; J7040; A4216; G0378; G0480

== ENCOUNTER 2018-11-28 11:07 | Emergency (ER) | payer MEDICAID, SELFPAY ==
[2018-08-25 14:08] VITALS: BMI 25.8
[2018-11-28 11:08] VITALS: BP 117/69; PULSE 103; RESP 16; TEMP 36.7; O2SAT 98; BMI 25.5
--- NOTE | 2018-11-28 11:14 | ED.RN ---
pt alert and oriented at arrival. He refused treatment and asked if he could leave. The RN explained the potential risk of leaving without observation due to the overdose. He expressed understanding and walked from the department.
== END 2018-11-28 13:35 | disposition left against medical advice (07) ==
LOC: ED 11:18
PROVIDERS: Emergency Provider Emergency Medicine
DX: T65.91XA Toxic effect of unspecified substance, accidental (unintentional), initial encounter (principal)
CPT/HCPCS: 99283